=== PATIENT | female | born 1965 | race Caucasian/White ===

== ENCOUNTER 2017-11-03 19:21 | Emergency (ER) | payer OTHER ==
[~2017-11-03 19:21] MED LIST: CYCL5TAB PO; NAPR550 PO
[2017-11-03 19:37] VITALS: BP 148/89; PULSE 87; RESP 18; TEMP 97.8; O2SAT 100
[2017-11-03 21:19] VITALS: BP 151/109; PULSE 84; RESP 18; O2SAT 100
--- NOTE | 2017-11-03 21:22 | PD ---
HPI Chief Complaint: OD/ Ingestion Time Seen by Provider: 21:20 Travel History International Travel<30 days: No Contact w/Intl Traveler<30days: No Traveled to known affect area: No History of Present Illness HPI 52-year-old female presents to the emergency department by private transportation for evaluation of accidental ingestion of "Tire [place]". She reports earlier today she had transferred tire shiner from the original bottle that it had been into a Gatorade bottle and placed it on the kitchen sink. Patient had subsequently gone to bed and when she awakened she typically drinks Gatorade so went to the refrigerator and took a large gulp of the fluid in the Gatorade bottle and subsequently realized that it was not Gatorade. Patient surmises that her roommate had put the Gatorade into the refrigerator and so the subsequent confusion. Patient immediately called poison control. Patient has vomited multiple times. Patient denies any hematemesis coffee-ground emesis and has not had any diarrhea or abdominal cramping. Patient denies any chest pain or shortness of breath. Patient denies any chronic medical conditions other than seasonal allergies. Patient states she occasionally takes ibuprofen and [id number] vitamins and Zyrtec. Patient takes no other medications and has no other chronic medical conditions. Patient rates her discomfort as moderate. Patient does have nausea. Patient is encouraged that if she had ongoing symptoms that she should come to the emergency department if she did not feel well. Due to ongoing discomfort she decided to come to the emergency room for evaluation. Patient reports she has been here approximately 3 hours and ingestion was approximately 5 hours ago. [facility] Past Medical History Reproductive: Yes (OVARIAN CYSTS) ?: Not Past Surgical History Hysterectomy: Yes Social History Alcohol Use: Yes Tobacco Use: Yes Substance Use: Yes (COCAINE SOMETIMES) Allergies-Medications (Allergen,Severity, Reaction): Coded Allergies: codeine (Verified Allergy, Unknown, 11/03/17) shrimp (Verified Allergy, Unknown, 11/03/17) Reported Meds & Prescriptions Reported Meds & Active Scripts Active No Active Prescriptions or Reported Medications Review of Systems Except as stated in HPI: all other systems reviewed are Neg General / Constitutional: No: Fever, Chills HENT: No: Congestion Cardiovascular: No: Chest Pain or Discomfort Respiratory: No: Cough, Shortness of Breath, Wheezing, Hemoptysis, Pleuritic Pain Gastrointestinal: Positive: Nausea, Vomiting, No: Diarrhea, Abdominal Pain, Hematemesis, Hematochezia Genitourinary: No: Hematuria Musculoskeletal: No: Myalgias, Arthralgias Skin: No Rash Neurologic: No: Dizziness, Change in Mentation Psychiatric: No: Anxiety Hematologic/Lymphatic: No: Lymph Node Enlargement Physical Exam Narrative GENERAL: Well-developed well-nourished female in no acute distress no respiratory distress SKIN: Warm and dry. HEAD: Atraumatic. Normocephalic. EYES: Pupils equal and round. No scleral icterus. No injection or drainage. ENT: No nasal bleeding or discharge. Mucous membranes pink and moist. Mucous membranes moist airway patent no edema no erythema no ulceration NECK: Trachea midline. No JVD. CARDIOVASCULAR: Regular rate and rhythm. RESPIRATORY: No accessory muscle use. Clear to auscultation. Breath sounds equal bilaterally. GASTROINTESTINAL: Abdomen soft, non-tender, nondistended. Hepatic and splenic margins not palpable. MUSCULOSKELETAL: Extremities without clubbing, cyanosis, or edema. No obvious deformities. NEUROLOGICAL: Awake and alert. No obvious cranial nerve deficits. Motor grossly within normal limits. Five out of 5 muscle strength in the arms and legs. Normal speech. PSYCHIATRIC: Appropriate mood and affect; insight and judgment normal. Data Data Last Documented VS Vital Signs Date Time Temp Pulse Resp B/P (MAP) Pulse Ox O2 Delivery O2 Flow Rate FiO2 11/03/17 21:19 84 18 151/109 (123) 100 Room Air 11/03/17 19:37 97.8 Orders Orders Electrocardiogram (11/03/17 21:41) Complete Blood Count With Diff (11/03/17 21:41) Comprehensive Metabolic Panel (11/03/17 21:41) Prothrombin Time / Inr (Pt) (11/03/17 21:41) Act Partial Throm Time (Ptt) (11/03/17 21:41) Chest, Pa & Lat (11/03/17 21:41) Blood Glucose (11/03/17 21:41) Iv Access Insert/Monitor (11/03/17 21:41) Ecg Monitoring (11/03/17 21:41) Oximetry (11/03/17 21:41) Sodium Chloride 0.9% Flush (Ns Flush) (11/03/17 21:45) Call Poison Control (11/03/17 21:41) Sodium Chlor 0.9% 1000 Ml Inj (Ns 1000 M (11/03/17 21:45) Ondansetron Inj (Zofran Inj) (11/03/17 21:45) MDM Medical Decision Making Medical Screen Exam Complete: Yes Emergency Medical Condition: Yes Medical Record Reviewed: Yes Interpretation(s) EKG: Normal sinus rhythm rate [address] elevation injury pattern or ectopy noted artifact is present at baseline Differential Diagnosis Accidental overdose, pneumonitis, gastritis, esophagitis, Diana-Torre tear, Boerhaave's, electrolyte disturbance, arrhythmia Narrative Course Patient placed on cardiac nurse specialist with continuous pulse oximetry and normal saline at 125 cc/h administered patient administered Zofran for complaint of nausea Diagnosis Primary Impression: Accidental ingestion of substance Scripts No Active Prescriptions or Reported Meds Sonya Mckinney MD Nov 03, 2017 21:22
[2017-11-03] MEDS ORDERED: SODIUM CHLORIDE 0.9% FLUSH 10 ML FLUSH IVF PRN (21:45)
[2017-11-03] MEDS ORDERED: SODIUM CHLOR 0.9% 1000 ML INJ 1,000 ML IV SCH (21:45)
[2017-11-03] MEDS ORDERED: ONDANSETRON HCL 4 MG/2 ML VIAL IV PUSH ONE (21:45)
[2017-11-03 22:19] VITALS: RESP 16; O2SAT 100
[2017-11-03 22:24] LABS: AUTOMATED NEUTROPHIL # 9.4 TH/MM3 (1.8-7.7); BASOPHIL # 0.1 TH/MM3 (0-0.2); BASOPHIL % 0.8 % (0.0-2.0); EOSINOPHIL # 0.1 TH/MM3 (0-0.4); EOSINOPHIL % 0.6 % (0.0-4.0); HEMATOCRIT 39.3 % (35.0-46.0); HEMOGLOBIN 13.7 GM/DL (11.6-15.3); MEAN CELL VOLUME 96.9 FL (80.0-100.0); MEAN CORPUSCULAR HEMOGLOBIN 33.9 PG (27.0-34.0); MEAN CORPUSCULAR HGB CONC 34.9 % (32.0-36.0); MEAN PLATELET VOLUME 9.4 FL (7.0-11.0); MONO % 6.8 % (0.0-8.0); MONOCYTE # 0.9 TH/MM3 (0-0.9); NEUT % 69.8 % (16.0-70.0); PLATELET COUNT 254 TH/MM3 (150-450); RED BLOOD COUNT 4.05 MIL/MM3 (4.00-5.30); RED CELL DISTRIBUTION WIDTH 13.8 % (11.6-17.2); WHITE BLOOD COUNT 13.5 TH/MM3 (4.0-11.0)
--- NOTE | 2017-11-03 22:24 | RADRPT ---
EXAM DATE/TIME: 11/03/2017 22:06 [place] COMPARISON: No previous studies available for comparison. INDICATIONS : Vomitting. Patient states drank tire strip cleaner accidentally. MEDICAL HISTORY : None. SURGICAL HISTORY : Hysterectomy. ENCOUNTER: Initial ACUITY: 1 day PAIN SCORE: 6/10 LOCATION: Bilateral Chest FINDINGS: PA and lateral views of the chest demonstrate the lungs to be symmetrically aerated without evidence of mass, infiltrate or effusion. The cardiomediastinal contours are unremarkable. Osseous structure s are intact. CONCLUSION: No acute disease. Lyle Arnold MD FACR on November 03, 2017 at 22:21 Board Certified Radiologist. This report was verified electronically.
[2017-11-03 22:30] VITALS: BP 151/109; PULSE 83; RESP 16; O2SAT 100
[2017-11-03] MEDS ORDERED: SODIUM CHLORID 0.9% 500 ML INJ 500 ML IV ONE (22:30)
[2017-11-03 22:41] LABS: ALBUMIN 4.1 GM/DL (3.4-5.0); ALT (GPT) 31 U/L (10-53); AST (GOT) 29 U/L (15-37); BICARBONATE 29.8 MEQ/L (21.0-32.0); BLOOD UREA NITROGEN 14 MG/DL (7-18); CHLORIDE 103 MEQ/L (98-107); CREATININE 0.63 MG/DL (0.50-1.00); GLOMERULAR FILTRATION RATE 98 ML/MIN (>89); GLUCOSE,RANDOM 96 MG/DL (74-106); SODIUM (NA) 140 MEQ/L (136-145)
[2017-11-03 22:43] LABS: ALKALINE PHOSPHATASE 43 U/L (45-117); TOTAL BILIRUBIN ADULT 0.2 MG/DL (0.2-1.0); TOTAL PROTEIN 8.5 GM/DL (6.4-8.2)
[2017-11-03 23:20] VITALS: BP 123/63; PULSE 78; RESP 16; O2SAT 100
[2017-11-04 00:38] VITALS: BP 123/63; PULSE 70; RESP 16; O2SAT 98
--- NOTE | 2017-11-04 19:38 | EKG ---
Date Performed: 11/03/2017 Time Performed: 21:54:00 PTAGE: 52 years EKG: Sinus rhythm NORMAL ECG NO PREVIOUS TRACING DOCTOR: Janae Baker Interpretating Date/Time 11/04/2017 19:37:24
== END 2017-11-04 03:29 | disposition home or self-care (01) ==
LOC: NEPC 19:21
DX: T65.891A Toxic effect of other specified substances, accidental (unintentional), initial encounter (principal); R11.2 Nausea with vomiting, unspecified; Y92.000 Kitchen of unspecified non-institutional (private) residence as the place of occurrence of the external cause; Z72.0 Tobacco use; Z88.5 Allergy status to narcotic agent
CPT/HCPCS: 71046; 80053; 85025; 85610; 85730; 93005; 96374; 99285; J2405; J7030; J7040